=== PATIENT | female | born 1950 | race Caucasian/White ===

== ENCOUNTER 2017-06-05 11:18 | Emergency (ER) | payer MEDICARE, OTHER ==
[~2017-06-05] VITALS: Ht 175.3 cm; Wt 53.9 kg
[~2017-06-05 11:18] MED LIST: ALPR-624 PO; ATI1T PO; ATRNS IH; CARI350T PO; CARV3.12 PO; CHOL200074 PO; DULO-31 PO; EST1T PO; HYDR-3964 PO; LISI2.5T89 PO; METH-350 PO; MULT-1074 PO; OMEP-84 PO; TRAZ-91 PO
[2017-06-05 11:22] VITALS: BP 122/83
[2017-06-05] MEDS ORDERED: diphenhydrAMINE 50 mg/ml inj IM ONE (13:55)
[2017-06-05] MEDS ORDERED: PRED10TA PO (13:59)
[2017-06-05] MEDS ORDERED: HYDROcodone/acetaminophen 10/325mg tab PO ONE (14:10)
== END 2017-06-05 14:23 | disposition home or self-care (01) ==
LOC: ER 11:19
DX: R21 Rash and other nonspecific skin eruption (principal); I10 Essential (primary) hypertension; F41.9 Anxiety disorder, unspecified; F32.9 Major depressive disorder, single episode, unspecified; Z88.0 Allergy status to penicillin; Z88.1 Allergy status to other antibiotic agents; Z88.2 Allergy status to sulfonamides
CPT/HCPCS: 96372; 99283; J1200

== ENCOUNTER 2018-08-14 13:30 | Emergency (ER) | payer MEDICARE, OTHER ==
[~2018-08-14] VITALS: Ht 175.3 cm; Wt 56.8 kg
[~2018-08-14 13:30] MED LIST changes: +PRED10TA PO
[2018-08-14 14:02] LABS: BASOPHILS % (AUTO) 0.3 % (0-1); EOSINOPHILS % (AUTO) 0.8 % (0-6); HEMOGLOBIN 12.7 g/dl (12.0-16.0); LYMPHOCYTES # (AUTO) 1.6 X10'3 (1.1-4.8); MEAN CORPUSCULAR HEMOGLOBIN 29.6 PG (27.0-31.0); MEAN CORPUSCULAR HGB CONC 32.5 g/dL (33.0-36.5); MEAN CORPUSCULAR VOLUME 90.8 FL (78-98); MEAN PLATELET VOLUME 6.6 FL (7.4-10.4); MONOCYTES # (AUTO) 0.5 X10'3 (0-0.9); MONOCYTES % (AUTO) 7.6 % (2-12); NEUTROPHILS # (AUTO) 3.9 X10'3 (1.8-7.7); NEUTROPHILS % (AUTO) 65.3 % (42-75); PLATELET COUNT 311 X10'3 (140-440); RED BLOOD COUNT 4.29 X10'6 (4.20-5.60); RED CELL DISTRIBUTION WIDTH 13.5 % (11.5-14.5)
[2018-08-14 14:30] LABS: ANION GAP 6 (8-16); BLOOD UREA NITROGEN 13 MG/DL (7-18); BUN/CREATININE RATIO 13.1 (6.6-38.0); CHLORIDE 103 MMOL/L (99-107); CREATININE 0.99 MG/DL (0.40-0.90); GLUCOSE 80 MG/DL (70-104); POTASSIUM 3.7 MMOL/L (3.5-5.1); SODIUM 141 MMOL/L (135-145); TOTAL CARBON DIOXIDE 32.1 MMOL/L (24-32); eGFR 56 ML/MIN
[2018-08-14 14:31] LABS: ALANINE AMINOTRANSFERASE 23 U/L (12-78); ALBUMIN 3.8 G/DL (3.4-5.0); ALKALINE PHOSPHATASE 76 IU/L (46-116); ASPARTATE AMINO TRANSFERASE 22 U/L (10-37); BILIRUBIN,TOTAL 0.1 MG/DL (0.1-1.0); CALCIUM 9.3 MG/DL (8.5-10.1); PARTIAL THROMBOPLASTIN TIME 26 SECONDS (22-32); PROTHROMBIN TIME 9.8 SECONDS (9.0-12.0); TOTAL PROTEIN 7.6 G/DL (6.4-8.2)
[2018-08-14] MEDS ORDERED: morphine 4 MG/ML inj SYRINge IV ONE (14:40)
[2018-08-14] MEDS ORDERED: ondansetron/PF 4mg/2ml inj IV ONE (14:40)
[2018-08-14 14:49] VITALS: BP 145/50
--- NOTE | 2018-08-14 14:52 | NUR ---
DR GRACIA IN ROOM, PATIENT DOES NOT WANT IV AT THIS TIME, HOLDING OFF FOR NOW ON IV MEDICATIONS
[2018-08-14] MEDS ORDERED: ketorolac trometh. 30mg/ml inj. IM ONE (14:55)
[2018-08-14] MEDS ORDERED: HYDROcodone/acetaminophen 10/325mg tab PO ONE (14:55)
[2018-08-14] MEDS ORDERED: ondansetron 4mg rapidly disintigrating tab PO ONE (14:55)
[2018-08-14] MEDS ORDERED: aspirin 81mg tab.chew PO ONE (14:55)
== END 2018-08-14 17:21 | disposition home or self-care (01) ==
LOC: ER 13:31
DX: R07.9 Chest pain, unspecified (principal); R06.02 Shortness of breath; I51.81 Takotsubo syndrome; I10 Essential (primary) hypertension; I25.2 Old myocardial infarction; Z90.49 Acquired absence of other specified parts of digestive tract; Z90.710 Acquired absence of both cervix and uterus; Z98.890 Other specified postprocedural states; Z88.0 Allergy status to penicillin; Z88.1 Allergy status to other antibiotic agents; Z88.2 Allergy status to sulfonamides; Z79.899 Other long term (current) drug therapy
CPT/HCPCS: 36415; 71045; 80053; 84484; 85025; 85610; 85730; 93005; 96372; 96374; 96375; 99284; J1885; J2270; J2405

== ENCOUNTER 2019-06-13 16:43 | Emergency (ER) | payer MEDICARE, OTHER ==
[~2019-06-13] VITALS: Ht 175.3 cm; Wt 59.2 kg
[2019-06-13 19:11] VITALS: BP 142/62
[2019-06-13 19:15] LABS: CLARITY,URINE CLOUDY (Clear); GLUCOSE, URINE NEGATIVE (Neg); KETONES,URINE 40 mg/dl (Neg); LEUKOCYTE ESTERASE ,URINE NEGATIVE (Neg); NITRITES, URINE NEGATIVE (Neg); OCCULT BLOOD,URINE SMALL (Neg); PH,URINE 5.5 (4.8-8.0); PROTEIN,URINE TRACE mg/dl (Neg); UROBILINOGEN,URINE 0.2 E.U/dL (0.2-1.0)
[2019-06-13 19:18] LABS: COLOR,URINE DARK YELLOW (Yellow); UA COLLECTION TYPE CLN CATCH MIDSTREAM
[2019-06-13 19:23] LABS: BACTERIA,URINE 3+ /HPF (Neg); MUCUS STRANDS MANY /LPF (Neg); SQUAMOUS EPITHELIAL CELL,UR MANY /LPF (FEW); WBC,URINE 0-4 /HPF (0-4)
[2019-06-13] MEDS ORDERED: acetaminophen 325mg tablet PO ONE (19:25)
[2019-06-13] MEDS ORDERED: ONDA4TAB12 PO (19:28)
[2019-06-13] MEDS ORDERED: ondansetron 4mg rapidly disintigrating tab PO ONE (19:30)
[2019-06-13] MEDS ORDERED: lactulose 20gm/30ml cup PO ONE (19:30)
== END 2019-06-13 19:54 | disposition home or self-care (01) ==
LOC: ER 16:44
DX: K59.09 Other constipation (principal); R10.30 Lower abdominal pain, unspecified; I10 Essential (primary) hypertension; I25.2 Old myocardial infarction; F41.9 Anxiety disorder, unspecified; F32.9 Major depressive disorder, single episode, unspecified; Z90.49 Acquired absence of other specified parts of digestive tract; Z90.710 Acquired absence of both cervix and uterus; Z98.890 Other specified postprocedural states; Z88.0 Allergy status to penicillin; Z88.2 Allergy status to sulfonamides; Z88.1 Allergy status to other antibiotic agents; Z79.899 Other long term (current) drug therapy
CPT/HCPCS: 81001; 99284

== ENCOUNTER 2024-02-14 09:45 | Outpatient (CLI) | payer MEDICARE, OTHER ==
[~2024-02-14 09:45] MED LIST changes: -ALPR-624 PO; -ATI1T PO; -CARV3.12 PO; +CETI10CA19 PO; -DULO-31 PO; +EMPA10TA PO; -EST1T PO; -HYDR-3964 PO; +HYDR-3972 PO; -LISI2.5T89 PO; +METO-395 PO; -OMEP-84 PO; -PRED10TA PO; +VARE1TAB29; +ZINC50CA2 PO
[2024-02-14 10:19] LABS: ALBUMIN 3.6 G/DL (3.4-5.0); ANION GAP 7 (8-16); BLOOD UREA NITROGEN 18 MG/DL (7-18); BUN/CREATININE RATIO 23.1 (10.0-20.0); CHLORIDE 106 MMOL/L (99-107); CREATININE 0.78 MG/DL (0.40-0.90); POTASSIUM 3.8 MMOL/L (3.5-5.1); SODIUM 143 MMOL/L (135-145); TOTAL CARBON DIOXIDE 29.7 MMOL/L (24-32); eGFR 73 ML/MIN
[2024-02-14] MEDS ORDERED: iohexol 350MG/ML 100ml bottle IV ONE (10:19)
[2024-02-14 10:20] LABS: GLUCOSE 99 MG/DL (70-104)
== END 2024-02-14 23:59 | disposition home or self-care (01) ==
LOC: 64 CT 09:45
PROVIDERS: ATTEND Internal Medicine Interventional Cardiology
DX: I11.0 Hypertensive heart disease with heart failure (principal); I50.22 Chronic systolic (congestive) heart failure; I70.8 Atherosclerosis of other arteries; N20.0 Calculus of kidney; I70.293 Other atherosclerosis of native arteries of extremities, bilateral legs
CPT/HCPCS: 36415; 71275; 74174; 80048; Q9967